=== PATIENT | male | born 1950 | race Two or more races ===

== ENCOUNTER 2022-04-21 13:47 | Outpatient (REF) | payer OTHER, SELFPAY ==
[2022-04-21 15:10] LABS: Erythrocyte Sedimentation Rate 9 MM/HR (0-15)
[2022-04-22 18:34] LABS: Lyme Abs Screen <0.90 index
[2022-04-25 08:09] LABS: Anti Nuclear Antibody Screen NEGATIVE (NEGATIVE)
[2022-04-26 23:29] LABS: Acetylcholine Recept. Blocking <15 (<15)
[2022-04-28 20:28] LABS: Acetylcholine Recep Modulating 12
[2022-05-03 03:38] LABS: Acetylcholine Receptor Binding <0.30 nmol/L
== END 2022-04-21 13:48 | disposition home or self-care (01) ==
LOC: HO.LAB 13:47
PROVIDERS: PCP Internal Medicine; Visit Provider Psychiatry & Neurology Neurology
DX: G12.21 Amyotrophic lateral sclerosis (principal)
CPT/HCPCS: 36415; 82550; 83519; 85652; 86038; 86039; 86617; 86618